=== PATIENT | male | born 1955 ===

== ENCOUNTER 2024-11-18 09:42 | Day surgery (SDC) | payer MEDICARE, OTHER ==
[2024-11-18] MEDS: Lactated Ringers 1,000 ML IV SCH (10:30)
[2024-11-18] MEDS ORDERED: Sodium Chloride 0.9% 10 ML Syringe FLUSH PRN (10:48)
[2024-11-18] MEDS ORDERED: Propofol 200 MG/20 ML SDV ONE ×2 (11:22→11:23)
[2024-11-18] MEDS ORDERED: Sodium Chloride 0.9% 10 ML Syringe FLUSH SCH (21:00)
== END 2024-11-18 12:15 | disposition home or self-care (01) ==
LOC: JD.SDS 09:42
PROVIDERS: ATTEND Surgery
DX: K21.00 Gastro-esophageal reflux disease with esophagitis, without bleeding (principal); I78.1 Nevus, non-neoplastic; I10 Essential (primary) hypertension; E03.9 Hypothyroidism, unspecified; F17.200 Nicotine dependence, unspecified, uncomplicated; Z79.899 Other long term (current) drug therapy
CPT/HCPCS: 00731; 88305; J2704; J7120